=== PATIENT | female | born 1995 | race African-American/Black ===

== ENCOUNTER 2022-04-03 10:07 | Emergency (ER) | payer OTHER, SELFPAY ==
[2022-04-03] VITALS (7 sets, daily range): BP systolic 103–110; BP diastolic 66–77; PULSE 68–108; RESP 16–19; TEMP 36.3–36.9; O2SAT 99–100
--- NOTE | ~2022-04-03 | CT_ITS ---
EXAMINATION: CT abdomen pelvis w con DATE: 04/03/2022 13:20 INDICATION: Lower abdominal pain. Vomiting. TECHNIQUE: Computed tomography (CT) of the abdomen and pelvis was performed with 100 cc Omnipaque 350 intravenous contrast. The dose-length product was 219.34 mGy-cm. Automated exposure control and iter ative reconstruction technique were employed. COMPARISON: No prior studies for comparison. FINDINGS: Lung bases are unremarkable. Heart size normal. No significant pleural or pericardial effus ion. Small subcentimeter hypodensities in the right hepatic lobe, most likely benign. The spleen, pancreas , adrenal glands and kidneys are unremarkable. Gallbladder is present. There is isodense soft tissue contiguous with the uterus anteriorly, likely representing exophytic uterine fibroids. There is mild endometrial thickening. Small amount of free fluid in the pelvis. Nonobstructive bowel gas pattern. N o free air. There is a 3.8 cm left adnexal cyst, likely ovarian. IMPRESSION: 1. Enlarged uterus with multiple isodense masses contiguous with the uterus anteriorly, most likely f ibroids. Recommend correlation with ultrasound. 2: 3.8 cm left adnexal cyst, likely ovarian. Reviewed, dictated and finalized at location A. SPINNER IMPRESSION: 1. Enlarged uterus with multiple isodense masses contiguous with the uterus ant eriorly, most likely fibroids. Recommend correlation with ultrasound. 2: 3.8 cm left adnexal cyst, likely ovarian.
--- NOTE | ~2022-04-03 | US_ITS ---
EXAMINATION: US transvaginal DATE: 04/03/2022 14:34 INDICATION: lower abdominal mass seen on CT TECHNIQUE: Multiple transabdominal and endovaginal sonographic images of the pelvis were obtained. COMPARISON: CT abdomen pelvis, same date. FINDINGS: Uterus: 7.8 x 6.0 x 4.2 cm. At least 5 uterine fibroids are present measuring up to 3.7 cm. Endometri al complex measures 10 mm. Right Ovary: 6.5 x 2.0 x 3.4 cm. Vascular flow is present. Vascular heterogeneous solid-appearing rig ht adnexal mass measuring 5.1 x 4.0 x 3.7 cm. Mass appeared to move with the right ovary and a defini tive connection to the uterus was not demonstrated. Left Ovary: 4.2 x 2.5 x 2.7 cm. Vascular flow is present. CT findings likely represented a slightly e nlarged left ovary that is still within limits of normal size range and otherwise appears sonographic ally normal. There is no free fluid in the pelvis. IMPRESSION: 1. Right adnexal mass may represent an ovarian mass or pedunculated fibroid. Consider gynecology refe rral and timely outpatient pelvic MRI without and with contrast for further characterization. 2. No left ovarian or adnexal mass detected. 3. Multiple uterine fibroids. Reviewed, dictated and finalized at location [facility]. E CHEF IMPRESSION: 1. Right adnexal mass may represent an ovarian mass or pedunculated fibroid. Co nsider gynecology referral and timely outpatient pelvic MRI without and with co ntrast for further characterization. 2. No left ovarian or adnexal mass detected. 3. Multiple uterine fibroids.
[2022-04-03 10:48] LABS: Basophils Percent Auto 0.2 % (0.2-1.2); Eosinophils Percent Auto 0.1 % (0-4.4); Hemoglobin 13.5 g/dL (12.0-15.0); Immature Granulocyte Absolute 0.04 K/mm3 (0.00-0.031); Immature Granulocyte Percent A 0.4 % (0-0.5); Mean Corpuscular HGB Conc 32.9 g/dl (32-36); Mean Corpuscular Hemoglobin 28.5 pg (26-34); Mean Corpuscular Volume 86.5 fl (80-100); Mean Platelet Volume 10.1 fl (7.4-10.4); Monocytes Absolute Auto 0.6 K/mm3 (0.1-0.6); Monocytes Percent Auto 5.8 % (2.6-8.5); Neutrophils Absolute Auto 9.2 K/mm3 (1.3-6.7); Neutrophils Percent Auto 91.5 % (45.5-73.1); Platelet Count Result 331 k/mm3 (150-375); Red Blood Count 4.74 M/mm3 (4.2-5.4); Red Cell Distribution Width 14.4 % (11.5-14.5); White Blood Count 10.1 K/mm3 (4.5-10.0)
[2022-04-03 10:52] LABS: Alanine Aminotransferase 22 U/L (6-35); Albumin Level 4.6 g/dL (3.5-5.1); Alkaline Phosphatase 42 U/L (38-126); Anion Gap 9 mmol/L (8-16); Aspartate Amino Transferase 28 U/L (14-36); Bilirubin,Total 0.7 mg/dL (0.2-1.3); Blood Urea Nitrogen 9 mg/dL (7-17); Calcium 8.9 mg/dL (8.4-10.2); Carbon Dioxide 23 mmol/L (22-30); Chloride 102 mmol/L (98-107); Estimated CRCL calculation 90 ml/min; Estimated Glomerular Filt Rate > 60; Glucose 106 mg/dL (65-110); Lipase 69 U/L (23-300); Potassium 3.8 mmol/L (3.4-5.0); Sodium 134 mmol/L (137-145)
--- NOTE | 2022-04-03 11:22 | ED.NAVMDI ---
HPI - Nausea/Vomiting/Diarrhea General Chief complaint: Nausea/Vomiting/Diarrhea Stated complaint: N/V, bodyaches Time Seen by Provider: 04/03/22 11:09 History of Present Illness HPI Narrative: Patient is a 26-year-old female here for evaluation of diffuse abdominal pain, nausea and vomiting over the past 12 hours. Patient states that she has dealt with chronic abdominal pain and constipation since 2016, but the issues acutely worsened over the past day. She states that she has had numerous episodes of vomiting parasites , which she describes as looking like leafy greens . She tells me that she knows that she has parasites but has never been officially diagnosed. Also reports body aches, chills, dysuria and urgency. She is afraid of an urgent care facility, COVID and flu test were negative tear, urine showed ketones, test was negative. She was given Zofran with relief of her nausea. Related Data Allergies Allergy/AdvReac Type Severity Reaction Status Date / Time amoxicillin Allergy Hives Verified 04/03/22 11:45 Review of Systems Review of Systems: Gen.: Denies fevers or chills Eyes: Denies eye pain or visual change ENT: Denies congestion Respiratory: Denies shortness of breath or cough CV: Denies chest pain or palpitations GI: Reports abdominal pain, nausea and vomiting. denies burning, urgency, frequency or hematuria Musculoskeletal: Denies back pain or muscle pain Neuro: Denies numbness, tingling, weakness or focal weakness Skin: Denies rash Except as documented, all other systems reviewed and negative Exam Narrative: APPEARANCE: Well appearing, no pain in distress, well-nourished. Head: Normocephalic and atraumatic. EYES: PERRLA/EOMI, conjunctivae clear NOSE: No nasal drainage EARS: External ear normal in appearance THROAT: Oropharynx is clear. Mucous membranes are moist. NECK: Supple. No adenopathy, no masses. RESPIRATORY: Airway patent, respirations nonlabored. Clear to auscultation bilaterally, no rales, rhonchi, wheezing. CARDIOVASCULAR: Regular rate and rhythm without murmurs, rubs, or gallops. ABDOMINAL: Suprapubic tenderness to palpation. Normoactive bowel sounds. Soft, nondistended. No rebound tenderness or guarding. MUSCULOSKELETAL: Extremities are warm and well-perfused. Moves all extremities well. No edema. NEURO: Normal speech. No focal neurologic deficits. SKIN: Skin is warm and dry. No rashes. PSYCHIATRIC: Normal affect/mood.. Course Vital Signs Vital signs: Vital Signs Temperature 98.5 F 04/03/22 10:22 Pulse Rate 108 H 04/03/22 10:22 Respiratory Rate 18 04/03/22 10:22 Blood Pressure 108/77 04/03/22 10:22 Pulse Oximetry 100 04/03/22 10:22 Oxygen Delivery Room Air 04/03/22 10:22 Temperature 98.3 F 04/03/22 16:00 Pulse Rate 70 04/03/22 16:35 Respiratory Rate 19 04/03/22 16:35 Blood Pressure 108/72 04/03/22 16:35 Pulse Oximetry 100 04/03/22 16:35 Oxygen Delivery Room Air 04/03/22 10:22 MDM - Nausea/Vomiting/Diarrhea MDM Narrative Medical decision making narrative: 26-year-old female here for evaluation of lower abdominal pain, nausea and vomiting, sent from urgent care. Patient is nontoxic-appearing and has slight suprapubic tenderness on exam. Vital signs are normal. Basic labs unremarkable. Urine with ketones but no signs of infection. CT scan shows some irregularities in her uterus, follow-up ultrasound shows a adnexal mass that may be a pedunculated fibroid or ovarian mass. Patient feeling better after Tylenol and Toradol and fluids. Tolerating p.o. Spoke with Dr. Irby on [facility] who agrees with plan for outpatient management and follow-up. Return precautions discussed and she voiced understanding. Lab Data 04/03/22 10:33 04/03/22 10:33 Labs: Lab Results 04/03/22 04/03/22 04/03/22 Range/Units 10:33 10:33 11:17 WBC 10.1 H (4.5-10.0) K/mm3 RBC 4.74 (4.2-5.4) M/mm3 Hgb 13.5
[2022-04-03 11:29] LABS: Add Urine Microscopic? YES; Appearance Urine Clear (Clear); Bilirubin Urine Negative (Negative); Blood Urine Negative (Negative); Color Urine Yellow (Yellow); Glucose Urine UA Negative (Negative); Ketones Urine 3+ mg/dL (Negative); Leukocyte Esterase Ur Negative LEU/UL (Negative); Nitrate Urine Negative (Negative); Protein Urine Negative (Negative); Specific Grav Ur >= 1.030 (1.001-1.035); Urobilinogen Urine 0.2 mg/dL (<2.0); pH Urine 5.5 (5.0-9.0)
[2022-04-03 11:35] LABS: Mucus Urine Rare /lpf; RBC Urine 0-2 /hpf (0-2); Squamous Epithelial Cell Urine Rare /hpf (Few); WBC Urine 0-3 /hpf
[2022-04-03] MEDS: SODIUM CHLORIDE 0.9% IV 1,000 ML 999 ML IV CONT (11:47)
[2022-04-03] MEDS: KETOROLAC 15 MG/ML VIAL (*BKC) IV PUSH (15:22)
== END 2022-04-03 16:37 | disposition home or self-care (01) ==
PROVIDERS: General Practice; Emergency Provider Physician Assistant
DX: D25.9 Leiomyoma of uterus, unspecified (principal); N94.89 Other specified conditions associated with female genital organs and menstrual cycle
CPT/HCPCS: 36415; 74177; 76830; 80053; 81001; 81025; 83690; 85025; 96361; 96374; 96375; 99284; J0131; J1885; J7030; Q9967